=== PATIENT | male | born 1955 | race Caucasian/White ===

== ENCOUNTER 2022-09-17 12:23 | Emergency (ER) | payer MEDICARE, MEDICAID, SELFPAY ==
[2022-09-17 12:33] VITALS: BP 152/82; PULSE 95; RESP 15; O2SAT 96; BMI 35.9
--- NOTE | 2022-09-17 12:50 | CTR_ITS ---
PROCEDURE INFORMATION: Exam: CT Cervical Spine Without Contrast Exam date and time: 09/17/2022 12:55 PM Age: 67 years old Clinical indication: Injury or trauma; Fall; Blunt trauma; Additional info: Fall from stairs, hit head, neck pain TECHNIQUE: Imaging protocol: Computed tomography of the cervical spine without contrast. Axial, coronal and sagittal reformatted images were created and reviewed. Radiation optimization: All CT scans at this facility use at least one of these dose optimization techniques: automated exposure control; mA and/or kV adjustment per patient size (includes targeted exams where dose is matched to clinical indication); or iterative reconstruction. REPORTING DATA: Count of CT and Cardiac NM exams in prior 12 months: This patient has received 0 known CTs and 0 known cardiac nuclear medicine studies in the 12 months prior to the current study. COMPARISON: No relevant prior studies available. RADIATION DOSE METRICS: Total DLP (mGy-cm): 304.8 FINDINGS: Bones/joints: Osteopenia. Straightening of the normal cervical lordosis. No CT evidence of acute fracture, dislocation or subluxation. Minimal anterolisthesis of C7 on T1. Alignment otherwise anatomic. Vertebral body heights maintained. Partial C5-C6 bony fusion. Multilevel degenerative changes, characterized by disc space narrowing, osteophytosis and uncovertebral and facet joint hypertrophy. Multilevel spinal canal and neural foraminal stenosis. Lungs: Grossly unremarkable. Soft tissues: Grossly unremarkable. CT/CT cervical spin wo con* [id number] IMPRESSION: 1. No CT evidence of acute cervical spine traumatic injury. 2. Additional findings, as above.
--- NOTE | 2022-09-17 12:50 | CTR_ITS ---
PROCEDURE INFORMATION: Exam: CT Maxillofacial Without Contrast Exam date and time: 09/17/2022 12:55 PM Age: 67 years old Clinical indication: Injury or trauma; Fall; Blunt trauma (contusions or hematomas); Nose; Additional info: Fall from stairs, injury to nose TECHNIQUE: Imaging protocol: Computed tomography of the face without contrast. Axial, coronal and sagittal reformatted images were created and reviewed. Radiation optimization: All CT scans at this facility use at least one of these dose optimization techniques: automated exposure control; mA and/or kV adjustment per patient size (includes targeted exams where dose is matched to clinical indication); or iterative reconstruction. REPORTING DATA: Count of CT and Cardiac NM exams in prior 12 months: This patient has received 0 known CTs and 0 known cardiac nuclear medicine studies in the 12 months prior to the current study. COMPARISON: No relevant prior studies available. RADIATION DOSE METRICS: Total DLP (mGy-cm): 674.8 FINDINGS: Orbital cavities: Orbits are normal. Globes are unremarkable. Bones/joints: Mild age-indeterminate deformity of the anterior nasal bones. Paranasal sinuses: Normal. No air-fluid levels. Soft tissues: Unremarkable. Dental: Poor dentition. CT/CT facial bones wo con* [id number] IMPRESSION: 1. Mild age-indeterminate deformity of the anterior nasal bones. 2. Additional findings, as above.
--- NOTE | 2022-09-17 12:50 | CTR_ITS ---
PROCEDURE INFORMATION: Exam: CT Head Without Contrast Exam date and time: 09/17/2022 12:55 PM Age: 67 years old Clinical indication: Injury or trauma; Fall; Blunt trauma (contusions or hematomas); Additional info: Fall from stairs and hit forehead, no loc TECHNIQUE: Imaging protocol: Computed tomography of the head without contrast. Axial, coronal and sagittal reformatted images were created and reviewed. Radiation optimization: All CT scans at this facility use at least one of these dose optimization techniques: automated exposure control; mA and/or kV adjustment per patient size (includes targeted exams where dose is matched to clinical indication); or iterative reconstruction. REPORTING DATA: Count of CT and Cardiac NM exams in prior 12 months: This patient has received 0 known CTs and 0 known cardiac nuclear medicine studies in the 12 months prior to the current study. COMPARISON: No relevant prior studies available. RADIATION DOSE METRICS: Total DLP (mGy-cm): 1281.5 FINDINGS: Brain: Subtle, patchy areas of hypoattenuation in the periventricular and subcortical white matter, nonspecific but suggestive of mild chronic small vessel ischemic disease. No CT evidence of acute intracranial hemorrhage or acute territorial infarction. No significant mass effect or midline shift. Basal cisterns patent. Cerebral ventricles: Prominence of the cortical sulci, cisterns and ventricular system, consistent with cerebral and cerebellar volume loss. Paranasal sinuses: Unremarkable. No fluid levels. Mastoid air cells: Grossly unremarkable. Bones/joints: Mild age-indeterminate deformity of the anterior nasal bones. Soft tissues: Mild right frontal scalp swelling. CT/CT head wo con* [id number] IMPRESSION: 1. No CT evidence of acute intracranial pathology. 2. Mild age-indeterminate deformity of the anterior nasal bones. 3. Additional findings, as above.
--- NOTE | 2022-09-17 12:51 | W.ED.HEATRA ---
HPI - Head Injury General: Chief complaint: Head Injury Stated complaint: fall, head injury Time Seen by Provider: 09/17/22 12:32 History of Present Illness: Patient is a 67-year-old male that comes to the ED with head injury after fall. Fall occurred just prior to arrival. Patient says he was walking down some porch steps in the rain. The steps were little slick from the rain and he slipped and fell face first. He hit his for head and nose on the ground first. He denies any loss of consciousness and he was able to get up after fall on his own without any assistance. Since fall he has a abrasion to right side of forehead with a hematoma as well. He also has a small abrasion on his nose and is complaining of headache and neck pain as well. Neck pain is located at the base of his neck and is on both sides. Patient says he took some Tylenol Cold and flu just before coming to the ED because that usually helps his pain. Denies any nausea/vomiting, vision changes, numbness tingling or weakness to 1 side of his body or face. Patient is not up-to-date on tetanus. Associated symptoms: Reports neck pain; Deny nausea or vomiting Review of Systems Const: Denies: fever(s), chills or fatigue Eyes: Denies: change in vision or eye discomfort ENMT: Denies: throat pain, odynophagia, nasal discharge or nasal congestion Card: Denies: chest pain, palpitations, edema, swelling of feet/ankles, dyspnea on exertion or orthopnea Resp: Denies: dyspnea, productive cough or non-productive cough GI: Denies: abdominal pain, nausea, vomiting, diarrhea, constipation or hematochezia : Denies: flank pain, difficulty urinating, dysuria or hematuria Musc: Reports: neck pain; Denies: back pain or extremity swelling Skin/Breast: Reports: new lesions (Abrasion to forehead and nose); Denies: rash Neuro: Reports: headache(s); Denies: numbness in extremities or weakness in extremities [facility] ED PFSH: Medical History (Updated 09/17/22 @ 13:49 by SEKOU Esposito) No pertinent family history Surgical History (Updated 09/17/22 @ 12:57 by SEKOU Esposito) No pertinent past surgical history Physical Exam Const: COMMON NORMALS: no acute distress, patient oriented x3 and alert HENMT: COMMON NORMALS: normocephalic HEAD & SCALP: normocephalic, abrasion right frontal Head abrasion size: 0.75 cm and hematoma right frontal Head hematoma size: 1 cm MOUTH: Normal oral and palatal mucosa present THROAT: posterior oropharynx normal and uvula midline Eye: COMMON NORMALS: Equal, round and reactive pupils present and EOMs intact bilaterally GENERAL EYE: appearance normal, both eyes and all related structures PUPIL: Yes Equal, round and reactive pupils present Neck/C-Spine: COMMON NORMALS: supple GENERAL: Yes normal visual inspection CERVICAL SPINE: Yes Paracervical muscle tenderness bilateral, Yes Trapezius muscle tenderness bilateral and Yes collar present Lymph: LYMPHATIC: no lymphadenopathy noted Resp: COMMON NORMALS: normal respiratory effort, No retractions, No use of accessory muscles and clear to auscultation bilaterally AUSCULTATION: clear to auscultation bilaterally Cardio: COMMON NORMALS: regular rate, regular rhythm, S1 normal heart sound present, S2 normal heart sound present, No gallops present (Cardio), No clicks present (Cardio), No murmurs present (Cardio) and Peripheral pulses 2+ throughout RATE: regular rate RHYTHM: regular rhythm HEART SOUNDS: S1 normal heart sound present and S2 normal heart sound present PERIPHERAL PULSES: Peripheral pulses 2+ throughout GI: COMMON NORMALS: Normal to inspection, nondistended, normoactive bowel sounds present, Soft to palpation, non-tender and no masses PALPATION: Yes Soft to palpation : COMMON NORMALS: Yes no CVA tenderness BLADDER/KIDNEY EXAM: Yes no CVA tenderness Back/Pelvis: COMMON NORMALS: no CVA tenderness Extremity: GENERAL: Yes normal exam except as noted Neuro: COMMON NORMALS: patient oriented x3, CN's II-XII intact bilaterally, moves all extremities, no focal motor deficits and no sensory deficits noted SENSORIUM/ORIENTATION: Yes alert SPEECH: speech normal GAIT: Yes Normal gait present SENSORY EXAM: Yes extremities (intact) MOTOR EXAM: 5/5 motor strength present throughout Skin: COMMON NORMALS: no rashes or lesions noted GENERAL SKIN EXAM: no rashes or lesions noted and dry skin Course Vital Signs: Vital signs: Vital Signs Pulse Rate 95 09/17/22 12:33 Respiratory Rate 15 09/17/22 12:33 Blood Pressure 152/82 09/17/22 12:33 Pulse Oximetry 96 09/17/22 12:33 Oxygen Delivery Me thod Room Air 09/17/22 12:33 MDM - Head Injury Medcial Decision Making Patient is a 67-year-old male that comes to the ED with head injury after fall. Fall occurred just prior to arrival. Patient says he was walking down some porch steps in the rain. The steps were little slick from the rain and he slipped and fell face first. He hit his for head and nose on the ground first. He denies any loss of consciousness and he was able to get up after fall on his own without any assistance. Since fall he has a abrasion to right side of forehead with a hematoma as well. He also has a small abrasion on his nose and is complaining of headache and neck pain as well. Neck pain is located at the base of his neck and is on both sides. Patient says he took some Tylenol Cold and flu just before coming to the ED because that usually helps his pain. Denies any nausea/vomiting, vision changes, numbness tingling or weakness to 1 side of his body or face. Vital stable. Neuro exam shows no deficits. Patient appears nontoxic in no acute distress but is in c-collar upon exam. He has a superficial abrasion on right side of forehead with a hematoma on right side of forehead as well. CT cervical spine, face CT and head CT all showed no acute fractures or findings. Patient was given updated tetanus here in the ED. C-collar was removed and patient was stable for discharge home. He was diagnosed with fall from stairs, neck pain and abrasion to forehead. He was sent home with a prescription for muscle relaxer and ibuprofen. Told to follow-up with PCP within the next week for reevaluation. Return to ED precautions given. Patient understood and agreed with plan. Lab Data Radiology Impressions Cervical Spine CT 09/17/22 12:[address]: [address] evidence of acute cervical spine traumatic injury. 2. Additional findings, as above. Face CT 09/17/22 12:50 IMPRESSION: 1. Mild age-indeterminate deformity of the anterior nasal bones. 2. Additional findings, as above. Head CT 09/17/22 12:50 IMPRESSION: 1. No CT evidence of acute intracranial pathology. 2. Mild age-indeterminate deformity of the anterior nasal bones. 3. Additional findings, as above. Discharge Plan Discharge Patient Disposition: Home Clinical Impression: Fall (on) (from) other stairs and steps, initial encounter, Neck pain Abrasion of forehead Qualifiers: Encounter type: initial encounter Qualified Code(s): S00.81XA - Abrasion of other part of head, initial encounter Condition: Stable Prescriptions: New methocarbamol 750 mg tablet 750 mg PO Q8H PRN (Reason: muscle spasms and pain) Qty: 20 0RF ibuprofen 800 mg tablet 800 mg PO Q8H PRN (Reason: pain) Qty: 20 0RF No Action atorvastatin 10 mg tablet 10 mg PO DAILY lisinopril 10 mg tablet 10 mg PO DAILY Discharge Orders: Discharge ED (Routine); Ordered 09/17/22 Ordered By: Seth Gonzalez Referrals: Bandar Haider MD [Primary Care Provider] - Discharge Diet: Regular Discharge Activity: Increase activity as tolerated Activity Restrictions/Additional Instructions: Follow-up with medical provider as directed in the next 7 to 10 days for reevaluation. Take medications as prescribed. Apply cold pack on sore area of neck to help with symptoms. Return to the ER or your medical provider if condition worsens. Please read and understand discharge instructions. Thank you for choosing [facility] for your healthcare needs today. Please realize this is an emergency room and that we are providing you with a medical screening exam and this may not be complete and all inclusive of all the testing and or work up that you may need to determine your ailment or severity of your illness. It is very important that you follow up as instructed or that you return to the Emergency Department should you have concerns or if your condition changes or worsens in any way. Coding Level of Care Code ED [employer]
[2022-09-17] MEDS: neomycin-poly-bacitracin oint 28 gm 1 APPLIC TOPICAL (14:01)
[2022-09-17] MEDS: tetanus-dipt-pertussis 0.5 mL SDV IM (14:01)
[2022-09-17 14:07] VITALS: BP 143/88; PULSE 100; RESP 18; O2SAT 94
== END 2022-09-17 14:20 | disposition home or self-care (01) ==
PROVIDERS: Emergency Provider Physician Assistant; PCP Family Medicine
DX: S00.81XA Abrasion of other part of head, initial encounter (principal); W01.0XXA Fall on same level from slipping, tripping and stumbling without subsequent striking against object, initial encounter; Z23 Encounter for immunization
CPT/HCPCS: 70450; 70486; 72125; 90471; 90715; 99284

== ENCOUNTER 2022-09-21 07:04 | Emergency (ER) | payer MEDICARE, MEDICAID, SELFPAY ==
[2022-09-21 07:17] VITALS: BP 155/86; PULSE 95; RESP 14; TEMP 36.8; O2SAT 98; BMI 35.9
--- NOTE | 2022-09-21 07:27 | ED_ITS ---
HPI - Neck Pain/Injury General: Chief Complaint: Neck Pain/Injury Stated Complaint: Swelling under Left eye/head/neck pain Time Seen by Provider: 09/21/22 07:15 History of Present Illness: Patient is a 67-year-old male who comes to the ED with neck pain and left lower eye swelling. Patient had a fall back on Monday, September 17 and he was seen here in the ED at that time. Scans were done of patient's face head neck and they were all clear. He states that today he woke up and had a small amount of swelling on the left side of his face just under his left eye. He also reports some very mild neck pain that he rates a 1 out of 10. Denies any reinjury or falls since he was seen here 4 days ago. Denies any other symptoms and he just wanted to get checked out to make sure he is healing well. Associated symptoms: Denies headache(s) or nausea Review of Systems Const: Denies: fever(s), chills or fatigue Eyes: Denies: change in vision or eye discomfort ENMT: Reports: other (Facial swelling-left side); Denies: throat pain, odynophagia, nasal discharge or nasal congestion Card: Denies: chest pain, palpitations, edema, swelling of feet/ankles, dyspnea on exertion or orthopnea Resp: Denies: dyspnea, productive cough or non-productive cough GI: Denies: abdominal pain, nausea, vomiting, diarrhea, constipation or hematochezia : Denies: flank pain, difficulty urinating, dysuria or hematuria Musc: Reports: neck pain; Denies: back pain or extremity swelling Skin/Breast: Denies: rash or new lesions Neuro: Denies: headache(s), numbness in extremities or weakness in extremities [facility] ED PFSH: Medical History No pertinent family history Surgical History No pertinent past surgical history Physical Exam Const: COMMON NORMALS: patient oriented x3 HENMT: COMMON NORMALS: normocephalic HEAD & SCALP: normocephalic FACE & SINUS: edema on the left maxilla (Small area just under left eye) MOUTH: Normal oral and palatal mucosa present THROAT: posterior oropharynx normal and uvula midline OTHER: Patient's abrasion on forehead is healing up really well and no signs of cellulitis noted. Eye: COMMON NORMALS: conjunctivae normal GENERAL EYE: appearance normal, both eyes and all related structures CONJUNCTIVA: Yes conjunctivae normal Neck/C-Spine: COMMON NORMALS: supple GENERAL: Yes normal visual inspection CERVICAL SPINE: Yes cervical ROM normal, No Cervical spine tenderness and No Paracervical muscle tenderness Resp: COMMON NORMALS: normal respiratory effort, No retractions, No use of accessory muscles and clear to auscultation bilaterally AUSCULTATION: clear to auscultation bilaterally Cardio: COMMON NORMALS: regular rate, regular rhythm, S1 normal heart sound present, S2 normal heart sound present, No gallops present (Cardio), No clicks present (Cardio), No murmurs present (Cardio) and Peripheral pulses 2+ throughout RATE: regular rate RHYTHM: regular rhythm HEART SOUNDS: S1 normal heart sound present and S2 normal heart sound present PERIPHERAL PULSES: Peripheral pulses 2+ throughout GI: COMMON NORMALS: Normal to inspection, nondistended, normoactive bowel sounds present, Soft to palpation, non-tender and no masses PALPATION: Yes Soft to palpation : COMMON NORMALS: Yes no CVA tenderness BLADDER/KIDNEY EXAM: Yes no CVA tenderness Back/Pelvis: COMMON NORMALS: no CVA tenderness Extremity: COMMON NORMALS: normal to inspection Neuro: COMMON NORMALS: patient oriented x3 GAIT: Yes Normal gait present Skin: GENERAL SKIN EXAM: dry skin Course Vital Signs: Vital signs: Vital Signs Temperature 98.3 F 09/21/22 07:17 Pulse Rate 95 09/21/22 07:17 Respiratory Rate 14 09/21/22 07:17 Blood Pressure 155/86 09/21/22 07:17 Pulse Oximetry 98 09/21/22 07:17 Oxygen Delivery Me thod Room Air 09/21/22 07:17 MDM - Neck Pain/Injury Medical Decision Making Patient is a 67-year-old male who comes to the ED with neck pain and left lower eye swelling. Patient had a fall back on Monday, September 17 and he was seen here in the ED at that time. Scans were done of patient's face head neck and they were all clear. He states that today he woke up and had a small amount of swelling on the left side of his face just under his left eye. He also reports some very mild neck pain that he rates a 1 out of 10. Denies any reinjury or falls since he was seen here 4 days ago. Denies any other symptoms and he just wanted to get checked out to make sure he is healing well. Patient appears nontoxic in no acute distress or pain. He has a small area of edema just under his left eye in the left maxillary region of face. His abrasion on his forehead is healing up really well with no signs of cellulitis. Rest of exam is benign. I reviewed his CT imaging of head, neck and face from September 17 and there was no acute findings noted. I explained to patient that some of his symptoms of residual neck pain and facial swelling are all part of the healing process. Told to follow-up with his PCP within the next week for reevaluation. Return to ED precautions given. Patient understood and agreed with plan. Discharge Plan Discharge Patient Disposition: Home Clinical Impression: Neck pain, Facial swelling Condition: Stable Prescriptions: No Action atorvastatin 10 mg tablet 10 mg PO DAILY lisinopril 10 mg tablet 10 mg PO DAILY methocarbamol 750 mg tablet 750 mg PO Q8H PRN (Reason: muscle spasms and pain) Qty: 20 0RF ibuprofen 800 mg tablet 800 mg PO Q8H PRN (Reason: pain) Qty: 20 0RF Discharge Orders: Discharge ED (Routine); Ordered 09/21/22 Ordered By: Seth Gonzalez Referrals: Bandar Haider MD [Primary Care Provider] - Discharge Diet: Regular Discharge Activity: Increase activity as tolerated Activity Restrictions/Additional Instructions: Follow-up with medical provider as directed in the next 5 to 7 days for reevaluation. Continue taking home medications as previously prescribed. Retu rn to the ER or your medical provider if condition worsens. Please read and understand discharge instructions. Thank you for choosing [facility] for your healthcare needs today. Please realize this is an emergency room and that we are providing you with a medical screening exam and this may not be complete and all inclusive of all the testing and or work up that you may need to determine your ailment or severity of your illness. It is very important that you follow up as instructed or that you return to the Emergency Department should you have concerns or if your condition changes or worsens in any way. Coding Level of Care Code ED [employer] for [employer]
== END 2022-09-21 07:37 | disposition home or self-care (01) ==
PROVIDERS: Emergency Provider Physician Assistant; PCP Family Medicine
DX: M54.2 Cervicalgia (principal); R22.0 Localized swelling, mass and lump, head
CPT/HCPCS: 99282

== ENCOUNTER 2023-10-13 08:48 | Outpatient (CLI) | payer MEDICARE, SELFPAY ==
--- NOTE | 2023-10-13 08:57 | XR_ITS ---
WS: [id number] XR foot RT min 3V* [id number] REASON FOR EXAM: HEEL PAIN, RIGHT FINDINGS: No fracture or focal bone lesion. No periosteal reaction. Moderate narrowing of the joint space with mild subchondral sclerosis in the DIP and PIP joints of th e toes. Remainder of the joint spaces in the forefoot are intact and relatively well preserved. Joint spaces of the midfoot are intact and relatively well preserved. Mild narrowing of the talonavic ular joint with mild subchondral sclerosis and osteophytosis. Subtalar joint is intact and well preserved. Small calcaneal posterior Achilles enthesophyte. 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
--- NOTE | 2023-10-13 08:58 | XR_ITS ---
WS: [id number] XR nasal bones min 3V [id number] REASON FOR EXAM: UNSPECIFIED DISORDER OF NOSE AND NASAL SINUSES FINDINGS: Superior and inferior nasal spines are intact without fracture. No other significant abnormality. XR/XR nasal bones min 3V [id number] IMPRESSION: No significant abnormality.
== END 2023-10-13 08:49 | disposition home or self-care (01) ==
LOC: RAD 08:56
PROVIDERS: PCP Family Medicine; Visit Provider Family Medicine
DX: M19.071 Primary osteoarthritis, right ankle and foot (principal); M77.31 Calcaneal spur, right foot; J34.9 Unspecified disorder of nose and nasal sinuses
CPT/HCPCS: 70160; 73630